=== PATIENT | female | born 1995 ===

== ENCOUNTER 2020-05-15 14:00 | Inpatient (IN) | payer OTHER ==
[~2020-05-15] VITALS: Ht 160 cm; Wt 71.7 kg
[2020-05-21] MEDS ORDERED: PRENATAL CAPLE1 EAC1 PO (07:54)
== END 2020-05-23 11:38 | disposition home or self-care (01) | DRG 807 ==
LOC: LDR 05-21 07:01 → OB/GYN 05-21 07:01 → SURH 05-27 14:00
PROVIDERS: ADMIT Obstetrics & Gynecology Maternal & Fetal Medicine; ATTEND Obstetrics & Gynecology Maternal & Fetal Medicine
PROC: 10E0XZZ Delivery of Products of Conception, External Approach (ICD-10-PCS; principal; 2020-05-21)
PROC: 0KQM0ZZ Repair Perineum Muscle, Open Approach (ICD-10-PCS; 2020-05-21)
PROC: 0W8NXZZ Division of Female Perineum, External Approach (ICD-10-PCS; 2020-05-21)
PROC: 4A1HXFZ Monitoring of Products of Conception, Cardiac Rhythm, External Approach (ICD-10-PCS; 2020-05-21)
DX: O70.1 Second degree perineal laceration during delivery (principal); Z37.0 Single live birth; Z3A.39 39 weeks gestation of pregnancy; Z20.822 Contact with and (suspected) exposure to COVID-19